=== PATIENT | female | born 2000 | race Caucasian/White ===

== ENCOUNTER 2018-09-19 11:53 | Emergency (ER) | payer OTHER ==
[2018-09-19 12:51] VITALS: BMI 30.2
[2018-09-19] MEDS ORDERED: Lactated Ringer's 1,000 ML IV SCH (13:00)
--- NOTE | 2018-09-19 17:37 | OBHP ---
Datetime: 09/19/2018 14:30 IP Adm Impression: , intrauterine IP Chief Complaint Other: Nausea/vomiting IP Admit Plan: Observation/Evaluation; Discharge home Admit Comment, IP Provider: HPI: Lizeth is a 18 year old G1 at 27 weeks who presents to triage for e valuation of nausea and vomiting that began this morning. She awoke early today with epigastric pain and had 3 episodes on nonbloody emesis before presenting at the hospital and one episode of emesis he re. She has not been able to keep any liquids or solids down since last night. Denies fever, chills, myalgias, dysuria, urinary frequency or urgency. Reporting good movement. No LOF or vaginal ble eding. 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 ROS: as per HPI, otherwise complete review of systems is negative PMH Denies PSH Denies Medications PNV Allergies NKDA Social Denies tobacco, alcohol or drug use OBJECTIVE HR 115 on initial exam Abdomen: mild epigastric tenderness, other abdomen is nontender labs: unavailable ASSESSMENT/PLAN: 18 year old G1 at 27 weeks presenting to triage for evaluation of nausea and vomi ting for the last few hours. Absence of fever, largely stable vital signs and mild abdominal exam con sistent with a viral gastroenteritis. She was given 1L of IV fluid and 4mg IV Zofran and was able to tolerate PO liquids before discharge. She was instructed to return if she continued vomiting or devel oped a high fever that did not resolve with tylenol. Patient was in agreement with the discharge plan and all questions were answered. She had a reactive NST here in triage with no signs concerning for compromise. Discharged in stable condition. Myriam Vargas MD OB Fellow The patient was seen with the fellow eye agree with the note Lungs - PN: Normal Heart - PN: Normal HEENT - PN: Normal General - PN: Normal IP Fetus A Comments: Reactive NST FHR - Baseline A Provider: 140 Gestation - Est Wks by US: 27.0 Vital Signs Provider: Reviewed; Within Normal Limits Vital Signs Provider Details: Initial maternal tachycardia NICHD Variability Prov Fetus A: Moderate 6-25bpm NICHD Accel Fetus A IP Provider: [id number] NICHD Decel Fetus A IP Provider: None
[2018-09-19 19:20] VITALS: BP 114/69; PULSE 115
== END 2018-09-19 15:05 | disposition home or self-care (01) ==
LOC: H.EROB2 11:53
DX: O26.93 Pregnancy related conditions, unspecified, third trimester (principal); R10.2 Pelvic and perineal pain; O21.0 Mild hyperemesis gravidarum; Z3A.27 27 weeks gestation of pregnancy
CPT/HCPCS: 96374; 99283; J2405; J7120

== ENCOUNTER 2018-11-15 04:25 | Inpatient (IN) | payer OTHER ==
[2018-11-15] MEDS ORDERED: Phenaphthazine-PH Test Paper VI ONE (05:10)
[2018-11-15] MEDS: Lactated Ringer's 1,000 ML IV ONE ×2 (05:30→07:00)
[2018-11-15 06:00] LABS: BASO % 0.3 % (0.0-2.0); EOS % 0.3 % (0.0-4.0); HEMOGLOBIN 10.4 g/dL (12.0-16.0); LYMPH # 1.4 K/uL (1.0-4.3); LYMPH % 9.7 % (20.0-40.0); MEAN CELL VOLUME 82.8 fl (81.0-99.0); MEAN CORPUSCULAR HEMOGLOBIN 27.5 pg (27.0-31.0); MEAN CORPUSCULAR HGB CONC 33.2 g/dL (33.0-37.0); MEAN PLATELET VOLUME 7.6 fl (7.2-11.7); MONO % 6.9 % (0.0-10.0); NEUT # 11.9 K/uL (1.8-7.0); NEUT % 82.8 % (50.0-75.0); PLATELET COUNT 196 K/uL (130-400); RBC 3.77 Mil/uL (3.80-5.20); RED CELL DISTRIBUTION WIDTH 15.6 % (11.5-14.5); WHITE BLOOD COUNT 14.3 K/uL (4.8-10.8)
[2018-11-15] MEDS ORDERED: Betamethasone Soluspan 30 mg/5mL Inj Susp IM ONE (06:37)
[2018-11-15] MEDS ORDERED: Penicillin G 5 Million Unit Vial IVPB ONE (07:13)
[2018-11-15] MEDS ORDERED: Bupivacaine HCl 0.5% PF (30 ml) Inj ONE (07:43)
--- NOTE | 2018-11-15 07:53 | OBADHP ---
Datetime: 11/15/2018 07:24 Admit Comment, IP Provider: 18-year-old at 35.6 EGA presents for contractions and loss of mu cous plug 5 hours prior to presentation. She describes the pain as coming and going, 5/10, and more o f a pressure in her pelvis but denies vaginal bleeding or loss of fluid. Endorses good movement . She denies headache, change in vision, chest pain, nausea, vomiting and new-onset edema. OBGYN: Dr Alejandre PMH: denies - chlamydia 1st tri, treated OBHx: 2 x AB Meds: denies Social: denies ROS: all other systems reviewed and negative unless noted for HPI. PE: uncomfortable during contractions VS: WNL Abd: no tenderness to palpation Ext: no pitting edema Skin: no rash Resp: no respiratory distress CV: RRR, S1 S2 Pelvic: Speculum - pooling noted, nitrizine positive. Cervix 1/50%/-3 A+P: 18-year-old at 35.6 EGA presents for contractions and loss of mucous plug 5 hours marvin or to presentation. -Admit to unit and allow for natural progression of labor -Continuous monitoring: Category I, reassuring -Betamethasone -Labs, IVF, Penecillin d/t unknown GBS status, PPROM -Pain control PRN Case seen and discussed with Dr Alejandre -Sharmin Oglesby PGY1 The patient was ssn with the resident I agree with the note Pelvic Type - PN: Adequate Extremities - PN: Normal Abdomen - PN: Normal Back - PN: Normal Breast - PN: Not Done Lungs - PN: Normal Heart - PN: Normal Thyroid - PN: Not Done Neurologic - PN: Not Done HEENT - PN: Normal General - PN: Normal FHR - Baseline A Provider: 140 Amniotic Fluid Color, Provider: Clear Membranes, Provider: Ruptured Pool Provider: Positive Nitrazine Provider: Positive Vital Signs Provider: Reviewed; Within Normal Limits IP Chief Complaint: Uterine contractions; Suspected ruptured membranes; Maternal discomfort NICHD Variability Prov Fetus A: Moderate 6-25bpm NICHD Accel Fetus A IP Provider: [id number] FHR Category Provider Fetus A: Category I NICHD Decel Fetus A IP Provider: None Dilatation, Provider: 1 Effacement, Provider: 50 Station, Provider: -3 Genitourinary Exam: Not Done DTRs - PN: Normal EGA AdmitDate IP: 35.6 IP Adm Impression: , intrauterine IP Admit Plan: Admit to unit; Initiate labor protocol Datetime: 09/19/2018 14:30 IP Chief Complaint Other: Nausea/vomiting IP Fetus A Comments: Reactive NST Gestation - Est Wks by US: 27.0 Vital Signs Provider Details: Initial maternal tachycardia
[2018-11-15] MEDS: Lactated Ringer's 1,000 ML IV SCH ×3 (08:30→15:20)
[2018-11-15] MEDS ORDERED: Fentanyl/Bupivacaine HCl 250 ML EPI ONE (08:30)
[2018-11-15 11:08] LABS: ANISOCYTOSIS SLIGHT; HYPOCHROMIC SLIGHT; LYMPHOCYTE 8 % (20-50); MONOCYTE 9 % (0-10); NEUTROPHIL 83 % (42-75); PLATELET ESTIMATE NORMAL (NORMAL); TOTAL CELLS COUNTED 100
[2018-11-15] MEDS ORDERED: OXYTOCIN/0.9 % NS 20 UNIT/1,000 ML BAG IV SCH (11:30)
[2018-11-15] MEDS ORDERED: Oxytocin 30 UNIT 30 UNITS/500 ML BAG IV ONE (11:30)
[2018-11-15] MEDS ORDERED: Lidocaine 1% Inj (20ml) IJ ONE (13:34)
[2018-11-15] MEDS ORDERED: Lidocaine 2% Inj (20ml) IJ ONE (13:38)
[2018-11-15] MEDS ORDERED: Oxycodone/Acetaminophen 5/325 mg Tab PO PRN ×4 (14:52→19:38)
[2018-11-15] MEDS ORDERED: Benzocaine/Menthol SPRAY TOP PRN ×2 (14:52→19:38)
[2018-11-16 06:34] LABS: BASO % 0.2 % (0.0-2.0); HEMOGLOBIN 9.1 g/dL (12.0-16.0); LYMPH # 2.1 K/uL (1.0-4.3); MEAN CELL VOLUME 82.8 fl (81.0-99.0); MEAN CORPUSCULAR HEMOGLOBIN 27.6 pg (27.0-31.0); MEAN CORPUSCULAR HGB CONC 33.3 g/dL (33.0-37.0); MONO # 1.6 K/uL (0.0-0.8); MONO % 9.1 % (0.0-10.0); NEUT # 14.1 K/uL (1.8-7.0); NEUT % 78.7 % (50.0-75.0); RBC 3.3 Mil/uL (3.80-5.20); WHITE BLOOD COUNT 17.9 K/uL (4.8-10.8)
--- NOTE | 2018-11-16 08:58 | OBDS ---
DELIVERY PERSONNEL Delivery Doctor: Chavez Cullen MD Home Care Companion: Arlene Abarca RN MATERNAL INFORMATION Delivery Anesthesia: Epidural Medications in Delivery: pitocin Estimated Blood Loss (ml): 200 Placenta Cultured: No Maternal Complications: None RN Comments: Atraumatic of viable ababygirl with Lusty cry. Skin to skinb initiated post deliv sheng. Patient tolerated delivery well noted with first degree laceration. Patient and recover yoing weell. Provider Comments: Normal spontaneous vaginal delivery. Patient delivered viable infant with Apgars of 9 and 9 at 1 and 5 minutes respectively. Placenta delivered spontaneously. Laceration repaired, as above. Uterus firm and appropriately hemostatic fo llowing delivery. Patient tolerated delivery and repair well. No complications. Estimated blood lo ss 200 cc. LABOR SUMMARY EDC: 12/14/2018 00:00 No. Babies in Womb: 1 Attempted: Yes Labor Anesthesia: Epidural LABOR INFORMATION Reason for Induction: Not Applicable Onset of Labor: 11/15/2018 07:00 Complete Dilatation: 11/08/2018 13:00 Oxytocin: N/A Group B Beta Strep: Not Done Antibiotics # of Doses: 2 Antibiotics Time of Last Dose: 1130 Steroids Given: Partial Course Reason Steroids Not Administered: Imminent Delivery MEMBRANES Membranes Rupture Method: Spontaneous Rupture of Membranes: 11/15/2018 01:20 Length of Rupture (hrs): 13.33 Amniotic Fluid Color: Clear Amniotic Fluid Amount: Small Amniotic Fluid Odor: Normal STAGES OF LABOR Stage 1 hrs: -162 Stage 1 min: 0 Stage 2 hrs: 169 Stage 2 min: 40 Stage 3 hrs: 0 Stage 3 min: 5 Total Time in Labor hrs: 7 Total Time in Labor min: 45 VAGINAL DELIVERY Episiotomy: None Laceration Extension: First Degree Laceration Type: Vaginal Laceration Repair: Yes Laceration Repair Note: First-degree right lateral vaginal laceration. Area infiltrated with 1% lid ocaine. Laceration repaired with 2.0 repeated without complication. Patient tolerated repair well. No complications. Initial Vag Sponge Count: 15 Final Vag Sponge Count: 15 Initial Vag Sharps Count: 3 Final Vag Sharps Count: 3 Sponge Count Correct: Yes Sharps Count Correct: Yes BABY A INFORMATION Infant Delivery Date/Time: 11/15/2018 14:40 Method of Delivery: Vaginal Born in Route : No : N/A Forceps: N/A Vacuum Extraction: N/A Shoulder Dystocia : No SHOULDER DYSTOCIA BABY A Infant Delivery Date/Time: 11/15/2018 14:40 PRESENTATION/POSITION BABY A Presentation: Cephalic Cephalic Presentation: Vertex Vertex Position: Left Occipital Anterior Breech Presentation: N/A PLACENTA INFORMATION BABY A Placenta Delivery Time : 11/15/2018 14:45 Placenta Method of Delivery: Spontaneous Placenta Status: Delivered INFORMATION BABY A Gestational Age at Delivery: 36.0 Gestational Status: Outcome : Liveborn Infant Condition : Stable Infant Sex: Female IDENTIFICATION/MEDS BABY A ID Band Number: [id number] ID Band Location: Left Leg; Left Arm Sensor Applied: No Sensor Number: 1 Sensor Location : Right Leg Vitamin K Given : Aquamephyton 0.5 mg IM Erythromycin Given: Given Both Eyes WEIGHT/LENGTH BABY A Infant Birthweight (gms): 2995 Weight (lb): 6 Infant Weight (oz): 10 Length Inches: 49.50 Length cms: 125.7 CORD INFORMATION BABY A No. Cord Vessels: 3 Nuchal Cord : N/A Cord Blood Taken: No Infant Suction: Mouth
--- NOTE | 2018-11-16 11:15 | OBPPN ---
Datetime: 11/16/2018 11:11 PP Pain Prov: Within normal limits PP Nausea Prov: Denies PP Flatus Prov: Yes PP Breasts Prov: Not Done PP Heart Prov: Normal PP Lungs Prov: Normal PP Abdomen/Uterus Prov: Normal PP Lochia Prov: Not Done PP Vulva/Perineum Prov: Not Done PP CVA Tenderness Prov: Normal PP Extremities Prov: Normal PP Impression Prov: Normal progression PP Plan Prov: Continue present management PP Progress Note Prov: Patient doing well ambulating tolerating diet voiding without difficulty pain well controlled Vital signs stable afebrile Uterus firm below the umbilicus Extremities no Homans day #1 Ambulate, regular diet, analgesia as needed, anticipate discharge in a.m. Vital Signs Provider PP: Reviewed
--- NOTE | 2018-11-17 08:21 | OBPPN ---
Datetime: 11/17/2018 08:19 PP Pain Prov: Within normal limits PP Nausea Prov: Denies PP Flatus Prov: Yes PP Breasts Prov: Not Done PP Heart Prov: Normal PP Lungs Prov: Normal PP Abdomen/Uterus Prov: Normal PP Lochia Prov: Not Done PP Vulva/Perineum Prov: Not Done PP CVA Tenderness Prov: Normal PP Extremities Prov: Normal PP Impression Prov: Normal progression PP Plan Prov: Discharge PP Progress Note Prov: Patient doing well ambulating tolerating diet voiding without difficulty Vital signs stable afebrile Uterus firm below the umbilicus Extremities no Homans day 2 Patient cleared for discharge Patient to follow-up with PMD in 6 weeks Motrin as needed Vital Signs Provider PP: Reviewed
--- NOTE | 2018-11-17 08:23 | OBDCSUM ---
Datetime: 09/19/2018 15:04 Follow up at, Provider: Dr. Dhillon Discharge Instructions, Provider: Routine instructions given Discharge Diagnosis, Provider: Term Delivered Contraception discussed, Prov: Yes Disch Activity Restrictions: No sexual activity; Nothing in vagina - [place], tampons, douche Discharge Comment, Provider: Patient cleared for discharge Contraception after Delivery: Undecided
[2018-11-17 19:38] VITALS: BP 126/67; PULSE 92; RESP 33; TEMP 98.1; O2SAT 99
== END 2018-11-17 14:00 | disposition home or self-care (01) | DRG 807 ==
LOC: H.EROB2 04:25 → H.L&D 05:18 → H.OB/GYN 20:15
PROVIDERS: ADMIT Obstetrics & Gynecology Gynecology; ATTEND Obstetrics & Gynecology Gynecology
PROC: 10E0XZZ Delivery of Products of Conception, External Approach (ICD-10-PCS; principal; 2018-11-15)
PROC: 0HQ9XZZ Repair Perineum Skin, External Approach (ICD-10-PCS; 2018-11-15)
PROC: 4A1HXCZ Monitoring of Products of Conception, Cardiac Rate, External Approach (ICD-10-PCS; 2018-11-15)
DX: O60.14X0 Preterm labor third trimester with preterm delivery third trimester, not applicable or unspecified (principal); Z37.0 Single live birth; O70.0 First degree perineal laceration during delivery; Z3A.36 36 weeks gestation of pregnancy